=== PATIENT | female | born 1975 | race Caucasian/White ===

== ENCOUNTER → 2021-10-25 09:26 | Outpatient (CLI) | payer MEDICAID, SELFPAY | PROVIDERS: PCP Emergency Medicine; Visit Provider Nurse Practitioner | DX: Z20.822 Contact with and (suspected) exposure to COVID-19 (principal) | CPT/HCPCS: C9803; U0003; U0005 ==

== ENCOUNTER 2024-02-15 20:33 | Emergency (ER) | payer MEDICAID, SELFPAY ==
[2024-02-15 20:33] VITALS: BP 147/79; PULSE 97; RESP 18; TEMP 37.1; O2SAT 98; BMI 28.8
[2024-02-15] MEDS: LACTATED RINGERS 1000ML 1,000 ML 999 ML IV (20:55)
--- NOTE | 2024-02-15 20:57 | ECG_ITS ---
APPROVED REPORT Exam: Resting ECG HR:87 bpm ECG Measurements Heart Rate 87 AXES VT 137 P 47 QRSd 78 QRS 42 QT 360 T 31 QTc 405 Conclusion SINUS RHYTHM POSSIBLE LEFT ATRIAL ENLARGEMENT [-0.1mV P-WAVE IN V1/V2] Electronically signed by : HOSSEIN DILLON, 02/16/2024 16:15:49
[2024-02-15 21:01] LABS: Basophils # 0.1 K/mm3 (0-0.2); Basophils % 0.6 % (0.1-2.0); Eosinophils % 0.5 % (0.1-12.0); Hematocrit 42.8 % (37.0-47.0); Hemoglobin 13.8 g/dL (12.2-16.2); Lymphocytes # 1.4 K/mm3 (0.7-4.5); Lymphocytes % 15.4 % (10-50); Mean Corpuscular HGB Conc 32.3 g/dL (31.8-35.4); Mean Corpuscular Hemoglobin 28.7 pg (27.0-31.2); Mean Platelet Volume 8.3 fl (7.4-10.4); Monocytes # 0.6 K/mm3 (0.1-1.0); Monocytes % 7.2 % (1.7-9.3); Neutrophils # 6.7 K/mm3 (1.8-7.8); Neutrophils % 76.3 % (37.0-80.0); Platelet Count 314 K/mm3 (142-424); Red Blood Count 4.81 M/mm3 (4.20-5.40); Red Cell Distribution Width 13.8 % (11.5-17.5); White Blood Count 8.8 K/mm3 (4.8-10.8)
[2024-02-15 21:03] LABS: Chloride 102 mmol/L (98-107); Sodium 137 mmol/L (136-145)
[2024-02-15 21:04] LABS: Potassium 3.4 mmoL/L (3.5-5.1)
[2024-02-15 21:06] LABS: Alanine Aminotransferase 40 U/L (12-78); Albumin Level 4.5 g/dl (3.5-5.0); Albumin/Globulin Ratio 1.6 (1.1-1.8); Alkaline Phosphatase 78 U/L (38-126); Anion Gap 11.4 mEq/L (5-15); Aspartate Amino Transferase 43 U/L (14-36); Bilirubin,Total 1.2 mg/dl (0.2-1.3); Blood Urea Nitrogen 9 mg/dl (7-17); Calcium 9.9 mg/dl (8.4-10.2); Carbon Dioxide 27 mmol/L (22.0-30.0); Creatinine Clearance Estimated 145 mL/min (50-200); Estimated Glomerular Filt Rate 106 ml/min (>60); GFR (African American) 129 ML/MIN (>60); Globulin 2.8 g/dL (1.3-3.2); Glucose 130 mg/dl (74-100); Total Protein,Serum 7.3 g/dl (6.3-8.2)
[2024-02-15 21:07] LABS: Magnesium 1.6 mg/dl (1.6-2.3)
--- NOTE | 2024-02-15 21:10 | ED_ITS ---
Discharge Plan Disposition Patient Disposition: Home, Self-Care Chief Complaint: PAIN Prescriptions Prescriptions: No Action levothyroxine 125 mcg tablet 125 mcg PO DAILY 14 Days Qty: 14 0RF paliperidone 6 mg tablet extended release 24hr 12 mg PO DAILY 14 Days Qty: 28 0RF benztropine 0.5 mg tablet 0.5 mg PO BID 14 Days Qty: 28 0RF famotidine 20 mg tablet 20 mg PO BID 14 Days Qty: 28 0RF haloperidol 2 mg tablet 2 mg PO BID 14 Days Qty: 28 0RF risperidone 4 mg tablet 4 mg PO BID 14 Days Qty: 28 0RF Referrals Follow up/Referrals: Avtar Recio APRN [Primary Care Provider] - See instructions Clinical Impressions Clinical Impression: Fatigue Discharge ED Provider: Titi Chacon General Adult HPI General Chief complaint: PAIN Stated complaint: recheck of BGL Time Seen by Provider: 02/15/24 20:47 Mode of Arrival: EMS Source of Information: Patient Limitations: No Limitations Description of Symptoms (Recalled from ER Triage Doc. by RN): Pt resident of [place], staff said she was unresponsive but breathing. Only complaint is of a sore throat. When EMS arrived, she answered all questions but then stated she couldn't walk but then got up and walked to strecther. Refused blood glucose per EMS. Pt has psych hx, [place] of state History of Present Illness HPI narrative: Please note that above description of symptoms, in this electronic medical record under categorization of recalled from ER triage doctor by RN are reflective of an initial nursing assessment, however, is not reflective of my full history and physical exam that was personally taken and clarified. Consequentially, this preceding description of symptoms, which may include the patient's categorized chief complaint in the EMR, do not reflect my personal clinical impression, and the ultimate description of history of present illness and patient stated complaints should be deferred to this section of the note. Unless stated otherwise or congruent with this section of the note, additional signs, symptoms, or incongruence should be interpreted as inaccurate with my clinical impression. Related Data Previous Rx's Medication Instructions Recorded benztropine 0.5 mg tablet 0.5 mg PO BID 2 weeks #28 tabs 06/19/23 famotidine 20 mg tablet 20 mg PO BID 2 weeks #28 tabs 06/19/23 haloperidol 2 mg tablet 2 mg PO BID 2 weeks #28 tabs 06/19/23 levothyroxine 125 mcg tablet 125 mcg PO DAILY 2 weeks #14 tabs 06/19/23 paliperidone 6 mg tablet,extended 12 mg (2 x 6 mg) PO DAILY 2 weeks 06/19/23 release 24 hr #28 tabs risperidone 4 mg tablet 4 mg PO BID 2 weeks #28 tabs 06/19/23 Allergies Allergy/AdvReac Type Severity Reaction Status Date / Time Unable to Assess Allergy Unverified 06/19/23 09:46 [facility] Disclaimer: The information contained in this section may have been updated after the patient was seen, as this information can be updated by other users. Social History Smoking Status: Unknown if ever smoked alcohol intake: never current occupational status: unemployed Travel in the last 8 weeks: None ROS Obtained: Yes All systems reviewed & no additional complaints except as documented Physical Exam General General appearance: alert and in no apparent distress Head Head exam: atraumatic and normocephalic Eye Eye exam: Present normal appearance, PERRL and EOMI ENT ENT exam: Present mucous membranes moist Neck Neck exam: Present normal inspection, full ROM and trachea midline Respiratory Respiratory exam: Absent respiratory distress, wheezes, stridor, accessory muscle use or prolonged expiratory phase Cardiovascular Cardiovascular exam: Present normal rhythm Abdominal Exam Abdominal exam: Present soft; Absent distention, tenderness, guarding, rebound or rigidity Extremities Exam Extremities exam: Absent edema Neurological Exam Neurological exam: Present alert, oriented X3, CN II-XII intact and normal gait; Absent motor sensory deficit Skin Skin exam: Present warm and dry; Absent diaphoresis or erythema Medical Decision Making Medical Records Medical records reviewed: Yes I reviewed the patient's medical records. Netfaly Inquiry Pt receiving controlled substance: No Neftaly was queried for this patient: No Vital Signs: 02/15/24 20:33 Temperature 98.8 F Temperature Source Axillary Pulse Rate [Left] 97 H Respiratory Rate 18 Blood Pressure [Right Arm] 147/79 H Blood Pressure Mean [Right Arm] 101 Blood Pressure Source [Right Arm] Automatic Cuff Blood Pressure Position [Right Arm] Sitting 02 Sat by Pulse Oximetry 98 Oxygen Delivery Method Room Air Lab Data Lab Results 02/15/24 20:42: WBC 8.8, RBC 4.81, Hgb 13.8, Hct 42.8, MCV 89.0, MCH 28.7, MCHC 32.3, RDW 13.8, Plt Count 314, MPV 8.3, Neut % (Auto) 76.3, Lymph % (Auto) 15.4, [place] % (Auto) 7.2, Eos % (Auto) 0.5, Baso % (Auto) 0.6, Neut # (Auto) 6.7, Lymph # (Auto) 1.4, [place] # (Auto) 0.6, Eos # (Auto) 0.0, Baso # (Auto) 0.1, Sodium 137, Potassium 3.4 L, Chloride 102, Carbon Dioxide 27, Anion Gap 11.4, BUN 9, Creatinine 0.60, Estimated Creat Clear 145, Estimated GFR 106, Est GFR ( Amer) 129, Glucose 130 H, Calcium 9.9, Magnesium 1.6, Total Bilirubin 1.2, AST 43 H, ALT 40, Alkaline Phosphatase 78, Total Protein 7.3, Albumin 4.5, Globulin 2.8, Albumin/Globulin Ratio 1.6 02/15/24 20:42 02/15/24 20:42 Orders (Tests/Meds): ED MEDICATIONS Discontinued Medications Generic Name Dose Route Start Last Admin Trade Name Freq PRN Reason Stop Dose Admin Lactated Ringer's 1,000 mls @ 999 mls/hr 02/15/24 20:53 02/15/24 20:55 Lactated Ringer's 1000 Ml Bag IV 02/15/24 21:53 999 mls/hr .Q1H1M ONE Administration ORDERS Category Date Time Status CBC w/Auto Diff [Complete Blood Count Auto Diff] Stat Lab 02/15/24 20:42 Completed CMP [Comprehensive Metabolic Panel] Stat Lab 02/15/24 20:42 Completed Magnesium Stat Lab 02/15/24 20:42 Completed UA [Urinalysis and Microscopic] Stat Lab 02/15/24 20:52 Ordered Medical Decision Narrative: Is a 48-year-old female history of depression, anxiety, psychiatric comorbidities presenting with unresponsiveness. Patient states that she was sleeping just prior to arrival when staff was checking on her. States that she remembers the whole episode. Staff states that she was unresponsive, so EMS was contacted. On arrival, patient alert and oriented, glucose normal, brought to the emergency department for further evaluation. On arrival, patient appropriate, alert and oriented, answering questions, states that she feels generally weak, but has no other complaints. Differential includes viral syndrome, UTI, metabolic abnormality, medication side effect, psychiatric comorbidity, among others. Patient was given IV fluids bolus for symptomatic management and correction of underlying abnormalities. Workup independently interpreted and significant for nonactionable hematologic workup. See radiology read for full review of final results. Independent interpretation of EKG shows 87 beats a minute sinus rhythm without ST or T wave changes concerning for acute ischemia. IN, QRS, QT intervals within normal limits. Given patient presentation, workup, history, this most likely represents psychogenic response versus sleeping patient. Because patient remembers the entire episode, likely to be psychogenic in nature versus malingering. Intermittently having episodes where she stops talking midsentence and drops her head to the side, still answers questions why her head is dropped to the side. Will wake up and answer questions appropriately with her eyes open intermittently as well. Because patient at baseline without signs or symptoms of clinical decompensation, deemed appropriate for discharge. Results were relayed to patient who voiced understanding and were agreeable to outpatient management and follow up. I discussed my clinical impression with patient and answered all questions. At this time, the evidence for any other entities in the differential is insufficient to warrant any further testing or ED observation. This was explained as well. Advisory was given that persistent or worsening symptoms require further evaluation. I confirmed the understanding of this discussion. Critical Care Critical Care Time Critical Care Time: No
[2024-02-15 21:53] VITALS: BP 122/95; PULSE 88; RESP 16; TEMP 37.1; O2SAT 98; O2SAT 99
--- NOTE | 2024-02-15 21:59 | PC.NURSE ---
[facility] notified of pt d/c, transportation on their way.
== END 2024-02-15 22:20 | disposition home or self-care (01) ==
PROVIDERS: Emergency Provider Emergency Medicine; PCP Nurse Practitioner Acute Care
DX: R53.83 Other fatigue (principal); Z86.59 Personal history of other mental and behavioral disorders
CPT/HCPCS: 80053; 83735; 85025; 93005; 96360; 99284

== ENCOUNTER 2025-08-27 09:51 | Emergency (ER) | payer MEDICAID, SELFPAY ==
[2025-08-27] VITALS (8 sets, daily range): BP systolic 89–115; BP diastolic 59–72; PULSE 83–120; RESP 14–24; TEMP 36.9–37.1; O2SAT 97–98; BMI 24.2
--- NOTE | 2025-08-27 09:54 | ECG_ITS ---
APPROVED REPORT Exam: Resting ECG HR:88 bpm ECG Measurements Heart Rate 88 AXES NV 130 P 71 QRSd 89 QRS 77 QT 354 T 57 QTc 400 Conclusion SINUS RHYTHM NORMAL ECG UNCONFIRMED REPORT Electronically signed by : Ozzie Domínguez, 08/31/2025 15:54:34
--- NOTE | 2025-08-27 10:14 | XR_ITS ---
FINAL REPORT CLINICAL HISTORY: Shortness of breath and chest pain COMPARISON: None FINDINGS: A single frontal view of the chest was obtained. No acute pulmonary opacity is present. There is no evidence of effusion or pneumothorax. Mediastinum is unremarkable. Heart size is normal. IMPRESSION: No acute abnormality. Reviewed, Interpreted and Dictated by Chandra Hines MD Transcribed by Carli Rosa Authenticated and . [facility]
--- NOTE | 2025-08-27 10:19 | HMH.EDCP ---
Discharge Plan Disposition Patient Disposition: Home, Self-Care Condition: Good Prescriptions Prescriptions: No Action levothyroxine 125 mcg tablet 125 mcg PO DAILY 14 Days Qty: 14 0RF paliperidone 6 mg tablet extended release 24hr 12 mg PO DAILY 14 Days Qty: 28 0RF benztropine 0.5 mg tablet 0.5 mg PO BID 14 Days Qty: 28 0RF famotidine 20 mg tablet 20 mg PO BID 14 Days Qty: 28 0RF haloperidol 2 mg tablet 2 mg PO BID 14 Days Qty: 28 0RF risperidone 4 mg tablet 4 mg PO BID 14 Days Qty: 28 0RF Referrals Follow up/Referrals: Avtar Recio APRN [Primary Care Provider, Medical] - See instructions Activity Restrictions/Add. Instructions Additional Instructions/Restrictions: Please return to the emergency department with any worsening signs or symptoms please take all your current medication as prescribed. Please utilize [id number] cold and flu medications for your symptomatic relief. We will call you with any results that would may be actionable on your chest x-ray and when your strep screen comes back. No news is good news. Clinical Impressions Clinical Impression: Atypical chest pain, Viral syndrome Instructions Patient Instructions: DI for Atypical Chest Pain, DI for Viral Syndrome Print Language Print Language: Congolese Discharge ED Provider: Kat Domínguez General Chief Complaint: Chest Pain Stated Complaint: chest pain Time Seen by Provider: 08/27/25 10:08 Mode of Arrival: EMS Source of Information: Patient and EMS Description of Symptoms (Recalled from ER Triage Doc. by RN): EMS was called to [place] for pt having chest pain. EMS reports that the pt stated that she started having sharp chest pains last night. pt reports that she has had a cough and sore throat for the past week after she went outside. Denies abdominal pain, vomiting, and diarrhea. History of Present Illness HPI narrative: 50-year-old female presents the emergency department from [facility] via EMS for chief complaint of chest pain. Patient states the chest pain started late last night and she is unsure of what time, and it continued to bother her this morning, currently rates the pain a 7 out of 10 at maximal 7 out of 10, patient admits to subjective fever chills cough congestion sore throat for the last week, admits to some shortness of breath at times, denies any abdominal pain constipation diarrhea no nausea no vomiting no urinary symptomatology, patient is a former smoker denies any alcohol or drug use, other past medical history consistent with GERD, hypothyroidism, mood disturbance on antipsychotic medication. Initial triage vitals are unremarkable. Patient states all of her symptoms started after she went outside , this past week. Please note that above description of symptoms, in this electronic medical record under categorization of recalled from ER triage doctor by RN are reflective of an initial nursing assessment, however, is not reflective of my full history and physical exam that was personally taken and clarified. Consequentially, this preceding description of symptoms, which may include the patient's categorized chief complaint in the EMR, do not reflect my personal clinical impression, and the ultimate description of history of present illness and patient stated complaints should be deferred to this section of the note. Unless stated otherwise or congruent with this section of the note, additional signs, symptoms, or incongruence should be interpreted as inaccurate with my clinical impression. Onset (ago): hour(s) Related Data Previous Rx's ?Medication ?Instructions ?Recorded benztropine 0.5 mg tablet 0.5 mg PO BID 2 weeks #28 tabs 06/19/23 famotidine 20 mg tablet 20 mg PO BID 2 weeks #28 tabs 06/19/23 haloperidol 2 mg tablet 2 mg PO BID 2 weeks #28 tabs 06/19/23 levothyroxine 125 mcg tablet 125 mcg PO DAILY 2 weeks #14 tabs 06/19/23 paliperidone 6 mg tablet,extended 12 mg (2 x 6 mg) PO DAILY 2 weeks 06/19/23 release 24 hr #28 tabs risperidone 4 mg tablet 4 mg PO BID 2 weeks #28 tabs 06/19/23 Allergies Allergy/AdvReac Type Severity Reaction Status Date / Time No Known Allergies Allergy Verified 08/27/25 10:06 [facility] Disclaimer: The information contained in this section may have been updated after the patient was seen, as this information can be updated by other users. Social History Smoking Status: Never smoker alcohol intake: never current occupational status: unemployed Travel in the last 8 weeks?: None Have you lived/traveled outside US in past 30 days?: No Contact w/someone who lives/traveled outside US past 30 days?: No Exposure to someone with infectious disease in past 14 days?: No Do you have a fever (greater than 100.4 F or 38 C)?: No Have you tested positive for COVID-19?: No Exposed to someone with COVID-19 in past 14 days?: No Do you have a sore throat?: No Do you have a cough?: No Do you have any weakness?: No Do you have any diarrhea?: No Are you experiencing any unusual bleeding?: No Do you have any muscle aches/pain?: No Do you have any abdominal pain?: No Are you experiencing loss of taste or smell?: No ROS Obtained: Yes All systems reviewed & no additional complaints except as documented Physical Exam General General appearance: alert and in no apparent distress Head Head exam: atraumatic and normocephalic Eye Eye exam: Present normal appearance, PERRL and EOMI Neck Neck exam: Present full ROM; Absent meningismus Chest Chest inspection: Present normal inspection Respiratory Respiratory exam: Absent respiratory distress, wheezes, stridor, accessory muscle use or prolonged expiratory phase Cardiovascular Cardiovascular exam: Present normal rhythm and other (Pulses equal and symmetric in bilateral upper and lower extremities) Abdominal Exam Abdominal exam: Absent distention, tenderness or guarding Extremities Exam Extremities exam: Absent edema Neurological Exam Neurological exam: Present alert Psychiatric Psychiatric exam: Present normal affect Skin Skin exam: Present warm and dry HEART Score HEART Score HEART Score assessment performed?: Yes HEART Score: 2 Critical Care Critical Care Time Critical Care Time: No Medical Decision Making Medical Records Medical records reviewed: Yes I reviewed the patient's medical records. Neftaly Inquiry Pt receiving controlled substance: No Neftaly was queried for this patient: No Vital Signs Vital Signs: 08/27/25 09:51 08/27/25 09:51 08/27/25 09:56 Temperature 98.5 F 98.5 F Temperature Source Oral Oral Pulse Rate 98 H 92 H Pulse Rate [Right] 98 H Respiratory Rate 16 16 23 Blood Pressure 115/68 97/72 L Blood Pressure [Right Arm] 115/68 Blood Pressure Mean Blood Pressure Mean [Right Arm] 83 Blood Pressure Source Automatic Cuff Blood Pressure Source [Right Arm] Automatic Cuff Blood Pressure Position Supine Blood Pressure Position [Right Arm] Supine 02 Sat by Pulse Oximetry 97 97 97 Oxygen Delivery Method Room Air Room Air 08/27/25 10:00 08/27/25 10:02 08/27/25 10:31 Temperature Temperature Source Pulse Rate 92 H 98 H 120 H Pulse Rate [Right] Respiratory Rate 22 24 Blood Pressure 103/72 L 89/59 L Blood Pressure [Right Arm] Blood Pressure Mean Blood Pressure Mean [Right Arm] Blood Pressure Source Blood Pressure Source [Right Arm] Blood Pressure Position Blood Pressure Position [Right Arm] 02 Sat by Pulse Oximetry 97 97 Oxygen Delivery Method 08/27/25 11:00 Temperature Temperature Source Pulse Rate 88 Pulse Rate [Right] Respiratory Rate 16 Blood Pressure 114/68 Blood Pressure [Right Arm] Blood Pressure Mean 80 Blood Pressure Mean [Right Arm] Blood Pressure Source Blood Pressure Source [Right Arm] Blood Pressure Position Blood Pressure Position [Right Arm] 02 Sat by Pulse Oximetry 97 Oxygen Delivery Method Lab Data Lab results reviewed: Yes I reviewed the patient's lab results. Labs: Lab Results 08/27/25 09:53: WBC 7.9, RBC 4.55, Hgb 13.1, Hct 39.0, MCV 85.7, MCH 28.8, MCHC 33.6, RDW 12.8, Plt Count 275, MPV 10.6 H, Neut % (Auto) 67.6, Lymph % (Auto) 24.0, [place] % (Auto) 7.4, Eos % (Auto) 0.3, Baso % (Auto) 0.6, Neut # (Auto) 5.3, Lymph # (Auto) 1.9, [place] # (Auto) 0.6, Eos # (Auto) 0.0, Baso # (Auto) 0.1, PT 11.7, INR 1.06, Sodium 136, Potassium 3.2 L, Chloride 103, Carbon Dioxide 23, Anion Gap 13.2, BUN 6 L, Creatinine 0.70, Estimated Creat Clear 102, Estimated GFR 88, Est GFR ( Amer) 107, Glucose 136 H, Calcium 9.3, Magnesium 1.5 L, Total Bilirubin 1.1, AST 33, ALT 32, Alkaline Phosphatase 67, Troponin I < 0.01, NT-Pro-B Natriuret Pep 27.8, Total Protein 7.0, Albumin 4.4, Globulin 2.6, Albumin/Globulin Ratio 1.7, Lipase 110, HCV Ab RASHID w/Rflx PCR Qn Negative, HIV Ag/Ab Combo Qual Negative 08/27/25 10:56: SARS-CoV-2 (PCR) Not detected, Influenza A Untype (PCR) Not detected, Influenza Type B (PCR) Not detected 08/27/25 09:53 08/27/25 09:53 Response Orders (Tests/Meds): ED MEDICATIONS Discontinued Medications Generic Name Dose Route Start Last Admin Trade Name Junior PRN Reason Stop Dose Admin Aspirin 324 mg 08/27/25 10:18 08/27/25 10:25 Aspirin 81mg Chewable Tablet PO 08/27/25 10:19 Not Given ONCE ONE Potassium Chloride 40 meq 08/27/25 10:37 08/27/25 11:00 Potassium Chloride 20meq Tab PO 08/27/25 10:38 40 meq ONCE ONE Administration ORDERS Category Date Time Status XR chest portable Stat Exams 08/27/25 10:14 Completed Complete Blood Count Auto Diff Stat Lab 08/27/25 09:53 Completed Comprehensive Metabolic Panel Stat Lab 08/27/25 09:53 Completed HIV Combo Stat Lab 08/27/25 09:53 Completed Hepatitis C Ab Qual. W/ RFX Stat Lab 08/27/25 09:53 Completed Lipase Stat Lab 08/27/25 09:53 Completed Magnesium Stat Lab 08/27/25 09:53 Completed NT Pro Brain Natriuretic Pep. Stat Lab 08/27/25 09:53 Completed PT INR [Prothrombin Time INR] Stat Lab 08/27/25 09:53 Completed Rapid PCR Covid and Flu A/B Stat Lab 08/27/25 10:56 Completed Strep Scrn Group A (Rapid) Stat Lab 08/27/25 10:19 Ordered Troponin I Q3H Lab 08/27/25 13:15 Ordered Troponin I Q3H Lab 08/27/25 16:15 Ordered Troponin I Stat Lab 08/27/25 09:53 Completed MDM Narrative Medical Decision Narrative: 50-year-old female presents the emergency department with cough congestion sore throat for 1 week and chest pain with shortness of breath this started last night differential diagnosis include but not limited to, acute bronchitis, viral URI, pneumonia, pleurisy, costochondritis, panic attack, GERD, anxiety reaction, ACS, cardiac arrhythmia, electrolyte disturbance, pneumothorax among others. I discussed this patient's case with attending physician Dr. Domínguez Will obtain basic laboratory studies, chest x-ray, lipase level, magnesium, proBNP, PT/INR, PCR COVID flu, troponin, and will give 324 mg p.o. aspirin for pain. Wells criteria negative. CMP is noted for mild hypokalemia at 3.2, otherwise unremarkable CMP. Will replace with 40 mill equivalents p.o. potassium Also of note, I was notified by nursing staff that the patient attempted to take the aspirin 324 mg p.o. that was ordered for her pain, however patient states this is a nasty skin and make me gag . Thus aspirin tablet was not finished. CBC is unremarkable Coags unremarkable Initial troponin is less than 0.01 proBNP within normal limits COVID-19 is negative via PCR, influenza negative via PCR I discussed these results/recommendations with the patient at the bedside, patient is currently resting in bed comfortably hemodynamically stable throughout time in the emergency department, states her pain is improved, tolerated p.o. intake here in the emergency department. I think the patient is cleared to be discharged home to self-care after initial troponin and EKG are negative, no other laboratory abnormalities, clinical history is not indicative of cardiac cause of the patient's chest pain, I think the patient has a degree of atypical chest pain most likely pleuritic bronchitis versus costochondritis in nature, possibly underlying URI. I reviewed the patient's chest x-ray along with the attending physician, there is no acute consolidation discussed that full radiology report of the patient's chest x-ray is not yet resulted, as well as her streptococcal rapid antigen screen, will call patient with results if actionable. Patient voiced understanding and agreement with the current treatment plan/discharge plan. Patient was given strict ED return precautions. Heart score of 2.
[2025-08-27 10:20] LABS: Hematocrit 39.0 % (37.0-47.0); Hemoglobin 13.1 g/dL (12.2-16.2); Immature Granulocytes % 0.1 %; Mean Corpuscular HGB Conc 33.6 g/dL (31.8-35.4); Mean Corpuscular Hemoglobin 28.8 pg (27.0-31.2); Mean Corpuscular Volume 85.7 fl (81-99); Nucleated Red Blood Cells % 0 %; Platelet Count 275 K/mm3 (142-424); Red Blood Count 4.55 M/mm3 (4.20-5.40); Red Cell Distribution Width-SD 39.8 fL; White Blood Count 7.9 K/mm3 (4.8-10.8)
[2025-08-27 10:26] LABS: INR 1.06 (0.9-1.1); Prothrombin Time 11.7 seconds (10.1-12.5)
[2025-08-27 10:30] LABS: Alanine Aminotransferase 32 U/L (12-78); Albumin Level 4.4 g/dl (3.5-5.0); Albumin/Globulin Ratio 1.7 (1.1-1.8); Alkaline Phosphatase 67 U/L (38-126); Anion Gap 13.2 mEq/L (5-15); Aspartate Amino Transferase 33 U/L (14-36); Bilirubin,Total 1.1 mg/dl (0.2-1.3); Blood Urea Nitrogen 6 mg/dl (7-17); Calcium 9.3 mg/dl (8.4-10.2); Carbon Dioxide 23 mmol/L (22.0-30.0); Chloride 103 mmol/L (98-107); Creatinine Clearance Estimated 102 mL/min (50-200); Creatinine,Serum 0.70 mg/dl (0.52-1.04); Estimated Glomerular Filt Rate 88 ml/min (>60); GFR (African American) 107 ML/MIN (>60); Globulin 2.6 g/dL (1.3-3.2); Glucose 136 mg/dl (74-100); Potassium 3.2 mmoL/L (3.5-5.1); Sodium 136 mmol/L (136-145); Total Protein,Serum 7.0 g/dl (6.3-8.2)
[2025-08-27 10:42] LABS: Troponin I < 0.01 ng/ml (0.00-0.034)
[2025-08-27 11:00] LABS: Coronavirus 19, PCR Not Detected (NotDetected); Influenza A, PCR Not Detected (NotDetected); Influenza B, PCR Not Detected (NotDetected)
[2025-08-27] MEDS: POTASSIUM CHLORIDE 20MEQ TAB 40 MEQ PO (11:00)
[2025-08-27 11:08] LABS: Hepatitis C Ab Qual. W/ RFX NEGATIVE (Negative)
[2025-08-27 11:11] LABS: Lipase 110 U/L (23-300); Magnesium 1.5 mg/dl (1.6-2.3)
[2025-08-27 11:20] LABS: NT Pro Brain Natriuretic Pep. 27.8 pg/mL (0-125)
--- NOTE | 2025-08-27 11:44 | PC.NURSE ---
Called care management for Red HERBERT
--- NOTE | 2025-08-27 11:45 | PC.NURSE ---
Notified [place] [facility] facility staff on an update of pt was getting discharged back to the facility.
[2025-08-27 11:56] LABS: Strep Scrn Group A (Rapid) Negative (Negative)
--- NOTE | 2025-08-27 12:11 | CARE MANAGER ---
Care a van called for ride back to [facility].
== END 2025-08-27 12:20 | disposition home or self-care (01) ==
PROVIDERS: Physician Assistant; Emergency Provider Student in an Organized Health Care Education/Training Program; PCP Nurse Practitioner Acute Care
DX: R07.89 Other chest pain (principal); B34.9 Viral infection, unspecified
CPT/HCPCS: 71045; 80053; 83690; 83735; 83880; 84484; 85025; 85610; 86803; 87389; 87430; 87636; 93005; 99284; 99285

== ENCOUNTER 2025-08-27 18:06 | Emergency (ER) | payer MEDICAID, SELFPAY ==
--- NOTE | 2025-08-27 18:10 | ECG_ITS ---
APPROVED REPORT Exam: Resting ECG HR:93 bpm ECG Measurements Heart Rate 93 AXES RI 143 P 63 QRSd 76 QRS 67 QT 348 T 36 QTc 399 Conclusion Normal sinus rhythm at [address] or T wave changes concerning for ischemia Electronically signed by : Manjula Grossman, 08/31/2025 00:31:23
--- NOTE | 2025-08-27 18:13 | ED_ITS ---
<Statement entered by Manjula Grossman DO - 08/28/25 21:29> I was consulted by the MILAD, and we discussed the complexity of problems being addressed. I approve the treatment and management plan for this patient's care in the emergency department, thus performing a substantial portion of the medical decision making. Manjula Grossman DO Discharge Plan Disposition Patient Disposition: Home, Self-Care Condition: Good Prescriptions Prescriptions: No Action levothyroxine 125 mcg tablet 125 mcg PO DAILY 14 Days Qty: 14 0RF paliperidone 6 mg tablet extended release 24hr 12 mg PO DAILY 14 Days Qty: 28 0RF benztropine 0.5 mg tablet 0.5 mg PO BID 14 Days Qty: 28 0RF famotidine 20 mg tablet 20 mg PO BID 14 Days Qty: 28 0RF haloperidol 2 mg tablet 2 mg PO BID 14 Days Qty: 28 0RF risperidone 4 mg tablet 4 mg PO BID 14 Days Qty: 28 0RF Referrals Follow up/Referrals: Gary Kerr MD [Staff Physician, General Surgery] - See instructions Avtar Recio APRN [Primary Care Provider, Medical] - See instructions Activity Restrictions/Add. Instructions Additional Instructions/Restrictions: You do have gallstones in your gallbladder. If you develop pain on the right side of your abdomen or have pain with eating this may be the cause. I have sent you with a referral to general sugery as your gallbladder may need to be removed if you continue to have chest pain symptoms. You need to call general surgery to schedule an appointment. Clinical Impressions Clinical Impression: Gallstones Print Language Print Language: Kiswahili Discharge ED Provider: Manjula Grossman HPI <BREANA Osman - Last Filed: 08/27/25 18:56> General Chief Complaint: Chest Pain Stated Complaint: chest pain Time Seen by Provider: 08/27/25 18:11 Mode of Arrival: EMS Source of Information: Patient, EMS and Medical Record History of Present Illness HPI narrative: 50-year-old female presents to the emergency department via EMS for atypical chest pain that is substernal nonradiating that is a current 8 out of 10, this started around 2 hours ago, she has some dyspnea associated with this, of note patient was seen in the emergency department earlier today at approximately 10 AM, for a similar complaint, at that time her chest pain was a 7 out of 10, substernal nonradiating, it had been waxing and waning since last night. The patient is somewhat of a poor historian unsure of neurological/behavioral/psychiatric baseline, patient states that she went home for emergency department visit, after receiving medication, negative EKG and negative troponin with negative chest x-ray, she was laying in bed , when her chest pain returned, patient states that she believes that her being so aggravated and stressed , is causing her chest pain. This episode of the patient's chest pain has been ongoing for the last 2 hours thus prompted subsequent emergency department encounter. Of note, patient admitted to once again subjective fever chills cough congestion and sore throat, for the last week, had negative viral rapid PCR's today in the emergency department/previous visit, once again she denies any abdominal pain, denies any trauma or injury per history, denies any diarrhea, nausea vomiting constipation no urinary symptomatology, patient is a former smoker denies any alcohol or drug use, other past medical history consistent with GERD hypothyroidism mood disturbance on some antipsychotic medication. Initial triage vitals are notable for tachycardia. Please note that above description of symptoms, in this electronic medical record under categorization of recalled from ER triage doctor by RN are reflective of an initial nursing assessment, however, is not reflective of my full history and physical exam that was personally taken and clarified. Consequentially, this preceding description of symptoms, which may include the patient's categorized chief complaint in the EMR, do not reflect my personal clinical impression, and the ultimate description of history of present illness and patient stated complaints should be deferred to this section of the note. Unless stated otherwise or congruent with this section of the note, additional signs, symptoms, or incongruence should be interpreted as inaccurate with my clinical impression. Onset (ago): hour(s) Duration: intermittent Pain location: substernal Related Data Previous Rx's ?Medication ?Instructions ?Recorded benztropine 0.5 mg tablet 0.5 mg PO BID 2 weeks #28 ta bs 06/19/23 famotidine 20 mg tablet 20 mg PO BID 2 weeks #28 tab s 06/19/23 haloperidol 2 mg tablet 2 mg PO BID 2 weeks #28 tabs 06/19/23 levothyroxine 125 mcg tablet 125 mcg PO DAILY 2 weeks #14 tabs 06/19/23 paliperidone 6 mg tablet,extended 12 mg (2 x 6 mg) PO DAILY 2 weeks 06/19/23 release 24 hr #28 tabs risperidone 4 mg tablet 4 mg PO BID 2 weeks #28 tabs 06/19/23 Allergies Allergy/AdvReac Type Severity Reaction Status Date / Time No Known Allergies Allergy Verified 08/27/25 10:06 PFS <BREANA Osman - Last Filed: 08/27/25 18:56> COUNTS INCLUDE 234 BEDS AT THE [facility] Disclaimer: The information contained in this section may have been updated after the patient was seen, as this information can be updated by other users. Social History Smoking Status: Never smoker alcohol intake: never current occupational status: unemployed Travel in the last 8 weeks?: None Have you lived/traveled outside [place] in past 30 days?: No Contact w/someone who lives/traveled outside US past 30 days?: No Exposure to someone with infectious disease in past 14 days?: No Do you have a fever (greater than 100.4 F or 38 C)?: No Have you tested positive for COVID-19?: No Exposed to someone with COVID-19 in past 14 days?: No Do you have a sore throat?: No Do you have a cough?: No Do you have any weakness?: No Do you have any diarrhea?: No Are you experiencing any unusual bleeding?: No Do you have any muscle aches/pain?: No Do you have any abdominal pain?: No Are you experiencing loss of taste or smell?: No <BREANA Osman - Last Filed: 08/27/25 18:56> ROS Obtained: Yes All systems reviewed & no additional complaints except as documented Physical Exam <BREANA Osman - Last Filed: 08/27/25 18:56> General General appearance: alert and in no apparent distress Comment: Somewhat of a flat affect Head Head exam: atraumatic and normocephalic Eye Eye exam: Present normal appearance, PERRL and EOMI Neck Neck exam: Present full ROM; Absent meningismus Chest Chest inspection: Present normal inspection, tenderness and other (Mild chest wall tenderness to palpation) Respiratory Respiratory exam: Absent respiratory distress, wheezes, stridor, accessory muscle use or prolonged expiratory phase Cardiovascular Cardiovascular exam: Present normal rhythm and other (Pulses equal and symmetric in bilateral upper and lower extremities) Abdominal Exam Abdominal exam: Absent distention Extremities Exam Extremities exam: Absent edema Neurological Exam Neurological exam: Present alert Psychiatric Psychiatric exam: Present normal affect and flat affect Skin Skin exam: Present warm and dry HEART Score <BREANA Osman - Last Filed: 08/27/25 18:56> HEART Score HEART Score assessment performed?: No Critical Care <BREANA Osman - Last Filed: 08/27/25 18:56> Critical Care Time Critical Care Time: No Medical Decision Making <BREANA Osman - Last Filed: 08/27/25 18:56> Medical Records Medical records reviewed: Yes I reviewed the patient's medical records. Neftaly Inquiry Pt receiving controlled substance: Yes Neftaly was queried for this patient: No Reason not queried -: Emergent pt cond-no time Risks and benefits of using a controlled substance: were discussed with pt by me Vital Signs Vital Signs: 08/27/25 18:15 08/27/25 18:26 08/27/25 18:30 Temperature 97.9 F Temperature Source Oral Pulse Rate 113 H 114 H Pulse Rate [Left Radial] 111 H Respiratory Rate 25 H 25 H 25 H Blood Pressure 127/79 127/74 Blood Pressure [Right Arm] 127/79 Blood Pressure Mean [Right Arm] 95 02 Sat by Pulse Oximetry 97 97 97 Oxygen Delivery Method Room Air 08/27/25 19:25 08/27/25 21:22 08/27/25 21:23 Temperature 98.8 F 98.0 F Temperature Source Pulse Rate 120 H 76 89 Pulse Rate [Left Radial] Respiratory Rate 18 15 Blood Pressure 110/69 130/80 Blood Pressure [Right Arm] Blood Pressure Mean [Right Arm] 02 Sat by Pulse Oximetry Oxygen Delivery Method Room Air Room Air Lab Data Lab results reviewed: Yes I reviewed the patient's lab results. Labs: Lab Results 08/27/25 18:20: WBC 10.3 D, RBC 4.42, Hgb 12.6, Hct 38.2, MCV 86.4, MCH 28.5, MCHC 33.0, RDW 12.7, Plt Count 261, MPV 10.2, Neut % (Auto) 75.6, Lymph % (Auto) 16.7, [place] % (Auto) 6.9, Eos % (Auto) 0.2, Baso % (Auto) 0.4, Neut # (Auto) 7.8, Lymph # (Auto) 1.7, [place] # (Auto) 0.7, Eos # (Auto) 0.0, Baso # (Auto) 0.0, PT 11.7, INR 1.06, Sodium 134 L, Potassium 3.1 L, Chloride 102, Carbon Dioxide 22, Anion Gap 13.1, BUN 7, Creatinine 0.70, Estimated Creat Clear 102, Estimated GFR 88, Est GFR ( Amer) 107, Glucose 201 H D, Calcium 9.2, Magnesium 1.4 L, Total Bilirubin 0.8, AST 32, ALT 36, Alkaline Phosphatase 61, Troponin I 0.01, NT-Pro-B Natriuret Pep 28.7, Total Protein 6.8, Albumin 4.2, Globulin 2.6, Albumin/Globulin Ratio 1.6, Lipase 137 08/27/25 18:20 08/27/25 18:20 Response Orders (Tests/Meds): ED MEDICATIONS Discontinued Medications Generic Name Dose Route Start Last Admin Trade Name Freq PRN Reason Stop Dose Admin Aspirin 325 mg 08/27/25 18:55 08/27/25 19:02 Aspirin 325mg Tablet PO 08/27/25 18:56 325 mg ONCE ONE Administration Magnesium Sulfate 2 gm in 50 mls @ 50 mls/hr 08/27/25 18:42 08/27/25 21:22 Magnesium Sulfate 2gm/50ml Premix IV 08/27/25 19:41 Infused ONCE ONE Infusion Iopamidol 75 ml 08/27/25 19:26 08/27/25 19:28 Iopamidol-370 (76%);100ml Bottle IV 08/27/25 19:27 75 ml ONCE ONE Administration Morphine Sulfate 2 mg 08/27/25 18:12 08/27/25 18:37 Morphine 2mg/Ml Syringe IV 08/27/25 18:13 2 mg ONCE ONE Administration Ondansetron HCl 4 mg 08/27/25 18:13 08/27/25 18:37 Ondansetron 4mg/2ml Vial IV 08/27/25 18:14 4 mg ONCE ONE Administration Potassium Chloride 60 meq 08/27/25 18:43 08/27/25 19:03 Potassium Chloride 20meq Tab PO 08/27/25 18:44 60 meq ONCE ONE Administration Sodium Chloride 10 ml 08/27/25 19:26 08/27/25 19:28 Sodium Chloride 0.9% 10ml Syr (Rad Only) IV 08/27/25 19:27 10 ml ONCE ONE Administration Sodium Chloride 50 ml 08/27/25 19:26 08/27/25 19:28 0.9 % Sodium Chloride 50 Ml Vial IV 08/27/25 19:27 50 ml ONCE ONE Administration ORDERS Category Date Time Status CT angio chest PE protocol Stat Cat Scan 08/27/25 18:22 Completed POCUS Point of Care (ER Only) Stat Exams 08/27/25 20:17 Taken Complete Blood Count Auto Diff Stat Lab 08/27/25 18:20 Completed Comprehensive Metabolic Panel Stat Lab 08/27/25 18:20 Completed Lipase Stat Lab 08/27/25 18:20 Completed Magnesium Stat Lab 08/27/25 18:20 Completed NT Pro Brain Natriuretic Pep. Stat Lab 08/27/25 18:20 Completed PT INR [Prothrombin Time INR] Stat Lab 08/27/25 18:20 Completed Troponin I Stat Lab 08/27/25 18:20 Completed MDM Narrative Medical Decision Narrative: 50-year-old female presents the emergency department with waxing and waning chest pain, differential diagnose include but not limited to, ACS, cardiac arrhythmia, electrolyte disturbance, costochondritis, panic attack, anxiety reaction, pleurisy, PE, among others. I discussed this patient's case with the attending physician Dr. Grossman at shift change, she will be assuming admitted the patient's care/workup, disposition is pending radiology report and laboratory studies. Will obtain basic laboratory studies UDS urinalysis lipase magnesium level proBNP PT/INR, troponin, CTA chest with and without contrast PE protocol, EKG, will give, 325 mg p.o. aspirin, 2 mg IV morphine and 4 mg IV Zofran for pain. Of note patient had a negative rapid PCR COVID flu and strep in previous emergency department visit today, patient also had negative chest x-ray earlier today, as well as negative EKG and troponin. CBC unremarkable Coags within normal limits CMP is noted for mild hyponatremia 134, mild hypokalemia 3.1, was 3.2 earlier today did receive p.o. potassium in the emergency department, however will give additional dose of 60 mEq p.o. potassium, mild hyperglycemia 201, mild hypomagnesia 1.4, was 1.5 earlier today, will replace with 2 g IV magnesium. Initial troponin is 0.01, proBNP within normal limit <Manjula Grossman, DO - Last Filed: 08/28/25 21:28> Vital Signs Vital Signs: 08/27/25 18:15 08/27/25 18:26 08/27/25 18:30 Temperature 97.9 F Temperature Source Oral Pulse Rate 113 H 114 H Pulse Rate [Left Radial] 111 H Respiratory Rate 25 H 25 H 25 H Blood Pressure 127/79 127/74 Blood Pressure [Right Arm] 127/79 Blood Pressure Mean [Right Arm] 95 02 Sat by Pulse Oximetry 97 97 97 Oxygen Delivery Method Room Air 08/27/25 19:25 08/27/25 21:22 08/27/25 21:23 Temperature 98.8 F 98.0 F Temperature Source Pulse Rate 120 H 76 89 Pulse Rate [Left Radial] Respiratory Rate 18 15 Blood Pressure 110/69 130/80 Blood Pressure [Right Arm] Blood Pressure Mean [Right Arm] 02 Sat by Pulse Oximetry Oxygen Delivery Method Room Air Room Air Lab Data Labs: Lab Results 08/27/25 18:20: WBC 10.3 D, RBC 4.42, Hgb 12.6, Hct 38.2, MCV 86.4, MCH 28.5, MCHC 33.0, RDW 12.7, Plt Count 261, MPV 10.2, Neut % (Auto) 75.6, Lymph % (Auto) 16.7, [place] % (Auto) 6.9, Eos % (Auto) 0.2, Baso % (Auto) 0.4, Neut # (Auto) 7.8, Lymph # (Auto) 1.7, [place] # (Auto) 0.7, Eos # (Auto) 0.0, Baso # (Auto) 0.0, PT 11.7, INR 1.06, Sodium 134 L, Potassium 3.1 L, Chloride 102, Carbon Dioxide 22, Anion Gap 13.1, BUN 7, Creatinine 0.70, Estimated Creat Clear 102, Estimated GFR 88, Est GFR ( Amer) 107, Glucose 201 H D, Calcium 9.2, Magnesium 1.4 L, Total Bilirubin 0.8, AST 32, ALT 36, Alkaline Phosphatase 61, Troponin I 0.01, NT-Pro-B Natriuret Pep 28.7, Total Protein 6.8, Albumin 4.2, Globulin 2.6, Albumin/Globulin Ratio 1.6, Lipase 137 Response Orders (Tests/Meds): ED MEDICATIONS Discontinued Medications Generic Name Dose Route Start Last Admin Trade Name Junior PRN Reason Stop Dose Admin Aspirin 325 mg 08/27/25 18:55 08/27/25 19:02 Aspirin 325mg Tablet PO 08/27/25 18:56 325 mg ONCE ONE Administration Magnesium Sulfate 2 gm in 50 mls @ 50 mls/hr 08/27/25 18:42 08/27/25 21:22 Magnesium Sulfate 2gm/50ml Premix IV 08/27/25 19:41 Infused ONCE ONE Infusion Iopamidol 75 ml 08/27/25 19:26 08/27/25 19:28 Iopamidol-370 (76%);100ml Bottle IV 08/27/25 19:27 75 ml ONCE ONE Administration Morphine Sulfate 2 mg 08/27/25 18:12 08/27/25 18:37 Morphine 2mg/Ml Syringe IV 08/27/25 18:13 2 mg ONCE ONE Administration Ondansetron HCl 4 mg 08/27/25 18:13 08/27/25 18:37 Ondansetron 4mg/2ml Vial IV 08/27/25 18:14 4 mg ONCE ONE Administration Potassium Chloride 60 meq 08/27/25 18:43 08/27/25 19:03 Potassium Chloride 20meq Tab PO 08/27/25 18:44 60 meq ONCE ONE Administration Sodium Chloride 10 ml 08/27/25 19:26 08/27/25 19:28 Sodium Chloride 0.9% 10ml Syr (Rad Only) IV 08/27/25 19:27 10 ml ONCE ONE Administration Sodium Chloride 50 ml 08/27/25 19:26 08/27/25 19:28 0.9 % Sodium Chloride 50 Ml Vial IV 08/27/25 19:27 50 ml ONCE ONE Administration ORDERS Category Date Time Status CT angio chest PE protocol Stat Cat Scan 08/27/25 18:22 Completed POCUS Point of Care (ER Only) Stat Exams 08/27/25 20:17 Taken Complete Blood Count Auto Diff Stat Lab 08/27/25 18:20 Completed Comprehensive Metabolic Panel Stat Lab 08/27/25 18:20 Completed Lipase Stat Lab 08/27/25 18:20 Completed Magnesium Stat Lab 08/27/25 18:20 Completed NT Pro Brain Natriuretic Pep. Stat Lab 08/27/25 18:20 Completed PT INR [Prothrombin Time INR] Stat Lab 08/27/25 18:20 Completed Troponin I Stat Lab 08/27/25 18:20 Completed MDM Narrative Medical Decision Narrative: 50-year-old female presents the emergency department with waxing and waning chest pain, differential diagnose include but not limited to, ACS, cardiac arrhythmia, electrolyte disturbance, costochondritis, panic attack, anxiety reaction, pleurisy, PE, among others. I discussed this patient's case with the attending physician Dr. Grossman at shift change, she will be assuming admitted the patient's care/workup, disposition is pending radiology report and laboratory studies. Will obtain basic laboratory studies UDS urinalysis lipase magnesium level proBNP PT/INR, troponin, CTA chest with and without contrast PE protocol, EKG, will give, 325 mg p.o. aspirin, 2 mg IV morphine and 4 mg IV Zofran for pain. Of note patient had a negative rapid PCR COVID flu and strep in previous emergency department visit today, patient also had negative chest x-ray earlier today, as well as negative EKG and troponin. CBC unremarkable Coags within normal limits CMP is noted for mild hyponatremia 134, mild hypokalemia 3.1, was 3.2 earlier today did receive p.o. potassium in the emergency department, however will give additional dose of 60 mEq p.o. potassium, mild hyperglycemia 201, mild hypomagnesia 1.4, was 1.5 earlier today, will replace with 2 g IV magnesium. Initial troponin is 0.01, proBNP within normal limit I assumed care of the patient at 1900. Patient CT scan of the abdomen showed a dilated gallbladder with a gallstone. [id number] ultrasound was done by myself which did show a large gallstone that was not present in the gallbladder neck. There was no anterior gallbladder wall thickening or pericholecystic fluid. Patient had no right upper quadrant tenderness or positive Parson sign. It is possible that patient's chest pain is related to her gallbladder however patient's pain has resolved at this time. I did discuss with the patient whether discussed again with general surgery now versus outpatient follow-up and patient wished to do outpatient follow-up. Patient's LFTs were unremarkable no elevated bilirubin to suggest choledocholithiasis. At this time, patient was sent with a referral to Dr. Kerr and general surgery return precautions were discussed and patient was otherwise discharged home in stable condition.
[2025-08-27 18:15] VITALS: BP 127/79; PULSE 111; RESP 25; TEMP 36.6; O2SAT 97; BMI 24.0
--- NOTE | 2025-08-27 18:22 | CT_ITS ---
PROCEDURE INFORMATION: Exam: CTA Chest With Contrast Exam date and time: 08/27/2025 7:26 PM Age: 50 years old Clinical indication: Shortness of breath; Additional info: SOA and cp TECHNIQUE: Imaging protocol: Computed tomographic angiography of the chest with contrast. Exam focused on the arteries. 3D rendering (Not supervised by radiologist): MIP and/or 3D reconstructed images were created by the technologist. Radiation optimization: All CT scans at this facility use at least one of these dose optimization techniques: automated exposure control; mA and/or kV adjustment per patient size (includes targeted exams where dose is matched to clinical indication); or iterative reconstruction. Contrast material: ISO 370; Contrast volume: 70 ml; Contrast route: INTRAVENOUS (IV); COMPARISON: CR XR CHEST PORTABLE 08/27/2025 10:29 AM FINDINGS: Pulmonary arteries: No evident PE. Aorta: Unremarkable. No aortic aneurysm. No aortic dissection. Lungs: Unremarkable. No consolidation. No masses. Pleural spaces: Unremarkable. No pneumothorax. No pleural effusion. Heart: Unremarkable. No cardiomegaly. No pericardial effusion. Lymph nodes: Unremarkable. No enlarged lymph nodes. Gallbladder and biliary ducts: Dilated partially visualized gallbladder measuring up to 5.8 cm in AP dimension. A 2.8 cm partially visible stone that may be impacted in the neck of the gallbladder noted. Additional solitary large stone also partially included in the field of view. Bones/joints: Unremarkable. No acute fracture. Soft tissues: Unremarkable. IMPRESSION: 1. No evident PE. No other acute pulmonary abnormalities. 2. Dilated partially visualized gallbladder measuring up to 5.8 cm in AP dimension. A 2.8 cm partially visible stone that may be impacted in the neck of the gallbladder noted and may be resulting in developing outlet obstruction of the gallbladder. Additional solitary large stone also partially included in the field of view. Advise further assessment with ultrasound of the right upper quadrant.
[2025-08-27 18:26] VITALS: BP 127/79; PULSE 113; RESP 25; O2SAT 97
[2025-08-27 18:27] LABS: Hematocrit 38.2 % (37.0-47.0); Hemoglobin 12.6 g/dL (12.2-16.2); Immature Granulocytes % 0.2 %; Mean Corpuscular HGB Conc 33.0 g/dL (31.8-35.4); Mean Corpuscular Hemoglobin 28.5 pg (27.0-31.2); Mean Corpuscular Volume 86.4 fl (81-99); Nucleated Red Blood Cells % 0 %; Platelet Count 261 K/mm3 (142-424); Red Blood Count 4.42 M/mm3 (4.20-5.40); Red Cell Distribution Width-SD 40.0 fL; White Blood Count 10.3 K/mm3 (4.8-10.8)
[2025-08-27 18:30] VITALS: BP 127/74; PULSE 114; RESP 25; O2SAT 97
[2025-08-27] MEDS: ONDANSETRON 4MG/2ML VIAL 4 MG IV (18:37)
[2025-08-27] MEDS: MORPHINE 2MG/ML SYRINGE 2 MG IV (18:37)
[2025-08-27 18:41] LABS: Alanine Aminotransferase 36 U/L (12-78); Albumin Level 4.2 g/dl (3.5-5.0); Albumin/Globulin Ratio 1.6 (1.1-1.8); Alkaline Phosphatase 61 U/L (38-126); Anion Gap 13.1 mEq/L (5-15); Aspartate Amino Transferase 32 U/L (14-36); Bilirubin,Total 0.8 mg/dl (0.2-1.3); Blood Urea Nitrogen 7 mg/dl (7-17); Calcium 9.2 mg/dl (8.4-10.2); Carbon Dioxide 22 mmol/L (22.0-30.0); Chloride 102 mmol/L (98-107); Creatinine Clearance Estimated 102 mL/min (50-200); Creatinine,Serum 0.70 mg/dl (0.52-1.04); Estimated Glomerular Filt Rate 88 ml/min (>60); GFR (African American) 107 ML/MIN (>60); Globulin 2.6 g/dL (1.3-3.2); Glucose 201 mg/dl (74-100); INR 1.06 (0.9-1.1); Lipase 137 U/L (23-300); Magnesium 1.4 mg/dl (1.6-2.3); Potassium 3.1 mmoL/L (3.5-5.1); Prothrombin Time 11.7 seconds (10.1-12.5); Sodium 134 mmol/L (136-145); Total Protein,Serum 6.8 g/dl (6.3-8.2)
[2025-08-27 18:52] LABS: NT Pro Brain Natriuretic Pep. 28.7 pg/mL (0-125)
[2025-08-27 18:54] LABS: Troponin I 0.01 ng/ml (0.00-0.034)
[2025-08-27] MEDS: ASPIRIN 325MG TABLET 325 MG PO (19:02)
[2025-08-27] MEDS: MAGNESIUM SULFATE IN WATER 2 GM/50 ML PIGGYBACK IV (19:02)
[2025-08-27] MEDS: POTASSIUM CHLORIDE 20MEQ TAB 60 MEQ PO (19:03)
[2025-08-27 19:25] VITALS: PULSE 120
[2025-08-27] MEDS: IOPAMIDOL-370 (76%);100ML BOTTLE 75 ML IV (19:28)
[2025-08-27] MEDS: 0.9 % SODIUM CHLORIDE 50 ML VIAL IV (19:28)
[2025-08-27] MEDS: SODIUM CHLORIDE 0.9% 10ML SYR (RAD ONLY) 10 ML IV (19:28)
[2025-08-27 21:22] VITALS: BP 110/69; PULSE 76; RESP 18; TEMP 37.1; O2SAT 98
[2025-08-27 21:23] VITALS: BP 130/80; PULSE 89; RESP 15; TEMP 36.7; O2SAT 96
== END 2025-08-27 22:17 | disposition home or self-care (01) ==
PROVIDERS: Physician Assistant; Emergency Provider Student in an Organized Health Care Education/Training Program; PCP Nurse Practitioner Acute Care
DX: R07.89 Other chest pain (principal); K80.20 Calculus of gallbladder without cholecystitis without obstruction
CPT/HCPCS: 71275; 80053; 83690; 83735; 83880; 84484; 85025; 85610; 93005; 96365; 96375; 99285; J2270; J2405; J3475; Q9967